=== PATIENT | female | born 1975 | race Caucasian/White ===

== ENCOUNTER 2018-10-07 20:22 | Emergency (ER) | payer OTHER, BC ==
--- NOTE | 2018-10-07 20:37 | EDM.PDOC ---
ED HPI GENERAL MEDICAL PROBLEM - General Chief Complaint: Upper Extremity Injury/Pain Stated Complaint: LEFT SHOULDER PAIN Time Seen by Provider: 10/07/18 20:25 Source of Information: Reports: Patient History Limitations: Reports: No Limitations - History of Present Illness INITIAL COMMENTS - FREE TEXT/NARRATIVE: HISTORY AND PHYSICAL: History of present illness: Patient is a 43-year-old female who presents to the emergency room today with complaints of left shoulder pain. She states that an iron pipe had fallen onto her left shoulder resulting in pain and difficulty with range of motion. She denies hitting her head or having any loss of consciousness. Denies any numbness or tingling to the affected extremity. No previous surgery, trauma or injuries of the affected extremity. Review of systems: As per history of present illness and below otherwise all systems reviewed and negative. Past medical history: As per history of present illness and as reviewed below otherwise noncontributory. Surgical history: As per history of present illness and as reviewed below otherwise noncontributory. Social history: See social history for further information Family history: As per history of present illness and as reviewed below otherwise noncontributory. Physical exam: General: Well-developed and well-nourished 43-year-old female. Alert and oriented. Nontoxic appearing and in no acute distress. HEENT: Atraumatic, normocephalic, pupils equal and reactive bilaterally, negative for conjunctival pallor or scleral icterus, mucous membranes moist, TMs normal bilaterally, throat clear, neck supple, nontender, trachea midline. No drooling or trismus noted. No meningeal signs. No hot potato voice noted. Lungs: Clear to auscultation, breath sounds equal bilaterally, chest nontender. Heart: S1S2, regular rate and rhythm without overt murmur Abdomen: Soft, nondistended, nontender. Negative for masses or hepatosplenomegaly. Negative for costovertebral tenderness. Pelvis: Stable nontender. Genitourinary: Deferred. Rectal: Deferred. Skin: Early bruising noted to the left mid clavicle, skin is intact, warm, dry. No tenting or soft tissue swelling noted. No lesions or rashes noted. Extremities: Pain with palpation of the left clavicle extending into the shoulder cap. Arm is guarded in towards body as position of comfort. Strong radial pulse. No pain to the humerus, elbow, forearm, wrist or hand. Neurovascular unremarkable. C-spine/Back: No pinpoint vertebral tenderness upon palpation. No crepitus, step -offs or obvious deformities. She was ambulatory into the emergency room without difficulty or deficits. Denies any numbness or tingling or satellite paresthesia. Denies any urinary or fecal incontinence. Neuro: Awake, alert, oriented. Cranial nerves II through XII unremarkable. Cerebellum unremarkable. Motor and sensory unremarkable throughout. Exam nonfocal. Notes: X-ray shows a nondisplaced midclavicular fracture. Otherwise shoulder x-ray is unremarkable. Patient was made aware of this and placed in a sling. Encouraged her to call Tuesday to set up an appointment with the orthopedic provider. Medication education was reviewed and discussed. Supportive care measures were reviewed and discussed. Voices understanding and is agreeable to plan of care. Denies any further questions or concerns at this time. Diagnostics: X-ray left clavicle and shoulder Therapeutics: Sling Prescription: Easton (#20) Impression: Nondisplaced clavicular fracture, left Plan: 1. Rest, ice, elevate the affected extremity. Please wear the sling as directed. Avoid any strenuous activities which could cause reinjury. 2. Tylenol and/or Ibuprofen as needed for pain management. Easton as needed for moderate to severe pain. This medication may cause drowsiness a do not take it will driving or needing to be functioning outside of the house. 3. Follow up with the Orthopedic provider as we discussed. Return to the ED as needed and as discussed. Definitive disposition and diagnosis as appropriate pending reevaluation and review of above. left shoulder/clavicle Pain Score (Numeric/FACES): 6 - Related Data Allergies Allergy/AdvReac Type Severity Reaction Status Date / Time No Known Allergies Allergy Verified 10/07/18 20:34 Home Meds: Home Meds . [No Known Home Meds] 10/07/18 [History] Review of Systems - Review of Systems Review Of Systems: ROS reveals no pertinent complaints other than HPI. ED EXAM, GENERAL - Physical Exam Exam: See Below (See dictation) Course - Vital Signs Last Recorded V/S: Last Vital Signs Temp 98 F 10/07/18 20:34 Pulse 90 10/07/18 20:34 Resp 18 10/07/18 20:34 BP 122/71 10/07/18 20:34 Pulse Ox 96 10/07/18 20:34 - Orders/Labs/Meds Orders: Active Orders 24 hr Category Date Time Status Clavicle Lt [CR] Stat Exams 10/07/18 20:41 Taken Shoulder Comp Lt [CR] Stat Exams 10/07/18 20:41 Taken DME for Discharge [COMM] Stat Oth 10/07/18 21:31 Ordered Departure - Departure Time of Disposition: 21:30 Disposition: Home, Self-Care 01 Clinical Impression: Clavicle fracture, shaft Qualifiers: Encounter type: initial encounter Fracture type: closed Fracture alignment: nondisplaced Laterality: left Qualified Code(s): S42.025A - Nondisplaced fracture of shaft of left clavicle, initial encounter for closed fracture - Discharge Information Instructions: Clavicle Fracture, [id number] Forms: ED Department Discharge Additional Instructions: The following information is given to patients seen in the emergency department who are being discharged to home. This information is to outline your options for follow-up care. We provide all patients seen in our emergency department with a follow-up referral. The need for follow-up, as well as the timing and circumstances, are variable depending upon the specifics of your emergency department visit. If you don't have a primary care physician on staff, we will provide you with a referral. We always advise you to contact your personal physician following an emergency department visit to inform them of the circumstance of the visit and for follow-up with them and/or the need for any referrals to a consulting specialist. The emergency department will also refer you to a specialist when appropriate. This referral assures that you have the opportunity for follow-up care with a specialist. All of these measure are taken in an effort to provide you with optimal care, which includes your follow-up. Under all circumstances we always encourage you to contact your private physician who remains a resource for coordinating your care. When calling for follow-up care, please make the office aware that this follow-up is from your recent emergency room visit. If for any reason you are refused follow-up, please contact the [facility] Emergency Department at and asked to speak to the emergency department charge nurse. [facility] [address] [place] [id number] [address] [facility] Professional Building [address] [facility], [address] [place] [address] 1. Rest and ice the affected extremity. Please wear the sling as directed. Avoid any strenuous activities which could cause reinjury. 2. Tylenol and/or Ibuprofen as needed for pain management. Easton as needed for moderate to severe pain. This medication may cause drowsiness a do not take it will driving or needing to be functioning outside of the house. 3. Follow up with the Orthopedic provider as we discussed. Return to the ED as needed and as discussed. - My Orders Last 24 Hours: My Active Orders 10/07/18 20:41 Clavicle Lt [CR] Stat Shoulder Comp Lt [CR] Stat 10/07/18 21:31 DME for Discharge [COMM] Stat - Assessment/Plan Last 24 Hours: My Active Orders 10/07/18 20:41 Clavicle Lt [CR] Stat Shoulder Comp Lt [CR] Stat 10/07/18 21:31 DME for Discharge [COMM] Stat
--- NOTE | 2018-10-07 21:45 | CR ---
INDICATION: Pain after work injury. COMPARISON: None available. FINDINGS: The left clavicle is examined with AP and cranially angulated views. There is an acute, minimally displaced, oblique fracture of the midshaft of the clavicle. The acromioclavicular joint is normal in appearance with no sign of separation. The visualized portions of the left shoulder and upper chest are normal in appearance. IMPRESSION: Acute, minimally displaced, oblique fracture of the midshaft of the clavicle. Dictated by Poncho Britt MD @ Oct 07 2018 9:43PM Signed by Dr. Poncho Britt @ Oct 07 2018 9:45PM
--- NOTE | 2018-10-07 21:47 | CR ---
INDICATION: Work related injury. COMPARISON: None available. FINDINGS: The left shoulder was examined with AP and outlet views for a total of two views. There is an acute, minimally displaced, oblique fracture of the midshaft of the clavicle. The osseous structures are in anatomic alignment without fracture or dislocation. There is anatomic alignment of the humeral head and glenoid. The visualized chest is clear. IMPRESSION: Acute, minimally displaced, oblique fracture of the midshaft of the clavicle. No sign of any additional fracture elsewhere in the shoulder. Dictated by Poncho Britt MD @ Oct 07 2018 9:45PM Signed by Dr. Poncho Britt @ Oct 07 2018 9:46PM
== END 2018-10-07 22:00 | disposition home or self-care (01) ==
LOC: MW.ED 20:22
DX: S42.025A Nondisplaced fracture of shaft of left clavicle, initial encounter for closed fracture (principal); W20.8XXA Other cause of strike by thrown, projected or falling object, initial encounter
CPT/HCPCS: 73000-26-LT; 73000-LT; 73030-26-LT; 73030-LT; 99282; 99283-25

== ENCOUNTER 2019-03-30 15:12 | Emergency (ER) | payer BC, OTHER ==
--- NOTE | 2019-03-30 15:20 | EDM.PDOC ---
ED HPI GENERAL MEDICAL PROBLEM - General Chief Complaint: Neurological Problem Stated Complaint: STROKE CODE Time Seen by Provider: 03/30/19 15:19 Source of Information: Reports: Patient History Limitations: Reports: No Limitations - History of Present Illness INITIAL COMMENTS - FREE TEXT/NARRATIVE: History of present illness: []Patient was eating prior to arrival with her sister and had a sudden onset of mild blurry vision. Her sister noted her right pupil was dilated. Patient has no other complaints at this time. She denies any trauma, headache or numbness or tingling anywhere. Review of systems: As per history of present illness and below otherwise all systems reviewed and negative. Past medical history: As per history of present illness and as reviewed below otherwise noncontributory. Surgical history: As per history of present illness and as reviewed below otherwise noncontributory. Social history: No reported history of drug or alcohol abuse. Family history: As per history of present illness and as reviewed below otherwise noncontributory. Physical exam: General: Well developed, well nourished in NAD HEENT: Atraumatic, normocephalic, pupils reactive, negative for conjunctival pallor or scleral icterus, mucous membranes moist, throat clear, neck supple, nontender, trachea midline. Lungs: Clear to auscultation, breath sounds equal bilaterally, chest nontender. Heart: S1S2, regular, negative for clicks, rubs, or JVD. Abdomen: NABS, Soft, nondistended, nontender. Negative for masses or hepatosplenomegaly. Negative for costovertebral tenderness. Pelvis: Stable nontender. Genitourinary: Deferred. Rectal: Deferred. Extremities: Atraumatic, negative for cords or calf pain. Neurovascular unremarkable. Neuro: Awake, alert, oriented. Cranial nerves II through XII unremarkable. Cerebellum unremarkable. Motor and sensory unremarkable throughout. Exam nonfocal. Skin:warm and dry Diagnostics: Head without contrast negative, CT Head and neck negative for aneurysm Therapeutics: None ED Course: 16:00-consulted Dr. Lanza, he requested CT angiogram of head and neck to rule out an aneurysm compressing the optic nerve. Impression: Irregular pupillary response Prescriptions: None Plan: Follow-up with ophthalmology in 2 days Definitive disposition and diagnosis as appropriate pending reevaluation and review of above. - Related Data Allergies Allergy/AdvReac Type Severity Reaction Status Date / Time No Known Allergies Allergy Verified 03/30/19 15:30 Home Meds: Home Meds . [No Known Home Meds] 10/07/18 [History] Past Medical History - Past Health History Medical/Surgical History: Denies Medical/Surgical History - Infectious Disease History Infectious Disease History: Reports: Chicken Pox Social & Family History - Family History Family Medical History: Noncontributory - Caffeine Use Caffeine Use: Reports: Coffee, Energy Drinks, Soda, Tea ED ROS GENERAL - Review of Systems Review Of Systems: See Below ED EXAM GENERAL W FULL EYE - Physical Exam Exam: See Below (The history of present illness) Course - Vital Signs Last Recorded V/S: Last Vital Signs Temp 98.2 F 03/30/19 15:27 Pulse 95 03/30/19 16:10 Resp 16 03/30/19 16:10 BP 116/74 03/30/19 16:10 Pulse Ox 95 03/30/19 16:10 - Orders/Labs/Meds Orders: Active Orders 24 hr Category Date Time Status Sodium Chloride 0.9% [Saline Flush] Med 03/30/19 16:02 Active 10 ml FLUSH ASDIRECTED PRN Sodium Chloride 0.9% [Saline Flush] Med 03/30/19 16:02 Active 2.5 ml FLUSH ASDIRECTED PRN Saline Lock Insert [OM.PC] Stat Oth 03/30/19 16:01 Ordered Medication Orders Sodium Chloride (Saline Flush) 10 ml FLUSH ASDIRECTED PRN PRN Reason: Keep Vein Open Sodium Chloride (Saline Flush) 2.5 ml FLUSH ASDIRECTED PRN PRN Reason: Keep Vein Open Labs: Laboratory Tests 03/30/19 03/30/19 Range/Units 16:15 16:15 WBC 10.81 (4.0-11.0) K/uL RBC 4.65 (4.30-5.90) M/uL Hgb 14.3 (12.0-16.0) g/dL Hct 43.4 (36.0-46.0) % MCV 93.3 (80.0-98.0) fL MCH 30.8 (27.0-32.0) pg MCHC 32.9 (31.0-37.0) g/dL RDW Std Deviation 45.2 (28.0-62.0) fl RDW Coeff of Josette 13 (11.0-15.0) % Plt Count 293 (150-400) K/uL MPV 11.20 (7.40-12.00) fL Neut % (Auto) 66.9 (48.0-80.0) % Lymph % (Auto) 25.2 (16.0-40.0) % Rolette % (Auto) 6.9 (0.0-15.0) % Eos % (Auto) 0.6 (0.0-7.0) % Baso % (Auto) 0.4 (0.0-1.5) % Neut # (Auto) 7.2 H (1.4-5.7) K/uL Lymph # (Auto) 2.7 H (0.6-2.4) K/uL Rolette # (Auto) 0.8 (0.0-0.8) K/uL Eos # (Auto) 0.1 (0.0-0.7) K/uL Baso # (Auto) 0.0 (0.0-0.1) K/uL Nucleated RBC % 0.0 /100WBC Nucleated RBCs # 0 K/uL Sodium 140 (136-145) mmol/L Potassium 4.1 (3.5-5.1) mmol/L Chloride 104 (98-107) mmol/L Carbon Dioxide 29.5 (21.0-32.0) mmol/L BUN 12 (7.0-18.0) mg/dL Creatinine 1.0 (0.6-1.0) mg/dL Est Cr Clr Drug Dosing 60.62 mL/min Estimated GFR (MDRD) > 60.0 ml/min Glucose 97 (74-106) mg/dL Calcium 9.6 (8.5-10.1) mg/dL Total Bilirubin 0.3 (0.2-1.0) mg/dL AST 14 L (15-37) IU/L ALT 14 (14-63) IU/L Alkaline Phosphatase 78 (46-116) U/L Total Protein 7.3 (6.4-8.2) g/dL Albumin 3.5 (3.4-5.0) g/dL Globulin 3.8 (2.6-4.0) g/dL Albumin/Globulin Ratio 0.9 (0.9-1.6) Meds: Medications Generic Name Dose Route Start Last Admin Trade Name Freq PRN Reason Stop Dose Admin Sodium Chloride 10 ml 03/30/19 16:02 Saline Flush FLUSH ASDIRECTED PRN Keep Vein Open Sodium Chloride 2.5 ml 03/30/19 16:02 Saline Flush FLUSH ASDIRECTED PRN Keep Vein Open Discontinued Medications Generic Name Dose Route Start Last Admin Trade Name Freq PRN Reason Stop Dose Admin Iopamidol 100 ml 03/30/19 17:42 03/30/19 17:42 Isovue Multipack-370 (76%) IVPUSH 03/30/19 17:43 100 ml ONETIME STA Administration Departure - Departure Time of Disposition: 18:11 Disposition: Home, Self-Care 01 Condition: Good Clinical Impression: Dilated pupil - Discharge Information *PRESCRIPTION DRUG MONITORING PROGRAM REVIEWED*: No *COPY OF PRESCRIPTION DRUG MONITORING REPORT IN PATIENT DENIS: No Referrals: PCP,Daveobsharif [Primary Care Provider] - Roosevelt Lanza [Ordering Only Provider] - Forms: ED Department Discharge Additional Instructions: The following information is given to patients seen in the emergency department who are being discharged to home. This information is to outline your options for follow-up care. We provide all patients seen in our emergency department with a follow-up referral. The need for follow-up, as well as the timing and circumstances, are variable depending upon the specifics of your emergency department visit. If you don't have a primary care physician on staff, we will provide you with a referral. We always advise you to contact your personal physician following an emergency department visit to inform them of the circumstance of the visit and for follow-up with them and/or the need for any referrals to a consulting specialist. The emergency department will also refer you to a specialist when appropriate. This referral assures that you have the opportunity for follow-up care with a specialist. All of these measure are taken in an effort to provide you with optimal care, which includes your follow-up. Under all circumstances we always encourage you to contact your private physician who remains a resource for coordinating your care. When calling for follow-up care, please make the office aware that this follow-up is from your recent emergency room visit. If for any reason you are refused follow-up, please contact the [facility] Emergency Department at and asked to speak to the emergency department charge nurse. Follow-up with ophthalmology in 2 days call Tuesday morning for appointment time. [address] [address] - My Orders Last 24 Hours: My Active Orders 03/30/19 16:01 Saline Lock Insert [OM.PC] Stat 03/30/19 16:02 Sodium Chloride 0.9% [Saline Flush] 10 ml FLUSH ASDIRECTED PRN Sodium Chloride 0.9% [Saline Flush] 2.5 ml FLUSH ASDIRECTED PRN - Assessment/Plan Last 24 Hours: My Active Orders 03/30/19 16:01 Saline Lock Insert [OM.PC] Stat 03/30/19 16:02 Sodium Chloride 0.9% [Saline Flush] 10 ml FLUSH ASDIRECTED PRN Sodium Chloride 0.9% [Saline Flush] 2.5 ml FLUSH ASDIRECTED PRN
--- NOTE | 2019-03-30 15:32 | CT ---
INDICATION: Right high dilated, blurry vision TECHNIQUE: CT head without contrast. COMPARISON: None FINDINGS: CSF spaces: Within normal limits for age. Brain parenchyma: The meza-white differentiation is normal. No sign of mass, hemorrhage, or midline shift. Skull base and calvarium: The visualized paranasal sinuses and mastoid air cells demonstrate no acute or significant findings. The visualized orbits are grossly unremarkable. No skull fractures. IMPRESSION: Unremarkable noncontrast head CT. Please note that all CT scans at this facility use dose modulation, iterative reconstruction, and/or weight-based dosing when appropriate to reduce radiation dose to as low as reasonably achievable. Dictated by Dunia Brooks MD @ Mar 30 2019 3:27PM Signed by Dr. Dunia Brooks @ Mar 30 2019 3:29PM
[2019-03-30] MEDS ORDERED: Sodium Chloride 0.9% 10 ML Syringe FLUSH PRN (16:02)
[2019-03-30] MEDS ORDERED: Sodium Chloride 0.9% 2.5 ML Syringe FLUSH PRN (16:02)
[2019-03-30 16:54] LABS: BLOOD UREA NITROGEN,BUN 12 mg/dL (7.0-18.0); CARBON DIOXIDE,CO2 29.5 mmol/L (21.0-32.0); CHLORIDE,CL 104 mmol/L (98-107); GLUCOSE RANDOM 97 mg/dL (74-106); POTASSIUM,K 4.1 mmol/L (3.5-5.1); SODIUM,NA 140 mmol/L (136-145)
[2019-03-30] MEDS ORDERED: Iopamidol 755 MG/ML 500 ML Multipack Bottle IVPUSH STA (17:42)
--- NOTE | 2019-03-30 18:04 | CT ---
INDICATION: Unilateral dilated pupil, right-side. TECHNIQUE: High resolution axial CT images acquired through the head and neck following rapid intravenous administration of iodinated contrast. Multiplanar MIPS of cranial and cervical vasculature performed. FINDINGS: CTA head: There is normal filling of the intracranial vasculature; i.e. there is no large vessel occlusion or intracranial stenosis. There is no cerebral aneurysm or evidence for vascular malformation. CTA neck: Both carotid and vertebral arteries have a normal course and caliber. The soft tissues of the neck are within normal limits. The cervical spine is in normal alignment. Degenerative changes are noted in the cervical spine. Scarring is noted in the lung apices. IMPRESSION: No acute intracranial abnormality. No carotid or vertebral artery stenosis or dissection. Tarik Miner MD Neurointerventional Radiologist [facility] [employer] Please note that all CT scans at this facility use dose modulation, iterative reconstruction, and/or weight-based dosing when appropriate to reduce radiation dose to as low as reasonably achievable. Dictated by Tarik Miner MD @ Mar 31 2019 2:48PM Signed by Dr. Tarik Miner @ Mar 31 2019 2:52PM
--- NOTE | 2019-03-30 18:06 | CT ---
INDICATION: Unilateral dilated pupil, right-side. TECHNIQUE: High resolution axial CT images acquired through the head and neck following rapid intravenous administration of iodinated contrast. Multiplanar MIPS of cranial and cervical vasculature performed. FINDINGS: CTA head: There is normal filling of the intracranial vasculature; i.e. there is no large vessel occlusion or intracranial stenosis. There is no cerebral aneurysm or evidence for vascular malformation. CTA neck: Both carotid and vertebral arteries have a normal course and caliber. The soft tissues of the neck are within normal limits. The cervical spine is in normal alignment. Degenerative changes are noted in the cervical spine. Scarring is noted in the lung apices. IMPRESSION: No acute intracranial abnormality. No carotid or vertebral artery stenosis or dissection. Tarik Miner MD Neurointerventional Radiologist [facility] Please note that all CT scans at this facility use dose modulation, iterative reconstruction, and/or weight-based dosing when appropriate to reduce radiation dose to as low as reasonably achievable. Dictated by Tarik Miner MD @ Mar 31 2019 2:52PM Signed by Dr. Tarik Miner @ Mar 31 2019 2:53PM
== END 2019-03-30 19:03 | disposition home or self-care (01) ==
LOC: MW.ED 15:12
DX: H57.04 Mydriasis (principal)
CPT/HCPCS: 36415; 70450; 70496; 70498; 80053; 85025; 99284; Q9967

== ENCOUNTER 2024-03-19 12:53 | Day surgery (SDC) | payer OTHER ==
[2024-03-19] MEDS: Lactated Ringers 1,000 ML IV SCH (14:02)
[2024-03-19] MEDS ORDERED: Lidocaine 2% 5 ML SDV ONE (14:48)
[2024-03-19] MEDS ORDERED: propofoL 50 ML ONE (14:48)
[2024-03-19] MEDS ORDERED: Lactated Ringers 1,000 ML IV SCH (15:45)
== END 2024-03-19 16:08 | disposition home or self-care (01) ==
LOC: MW.SDS 12:53
PROVIDERS: ATTEND Surgery
DX: D12.2 Benign neoplasm of ascending colon (principal); D12.3 Benign neoplasm of transverse colon; D12.5 Benign neoplasm of sigmoid colon; E78.00 Pure hypercholesterolemia, unspecified; E66.9 Obesity, unspecified; Z68.31 Body mass index [BMI] 31.0-31.9, adult; F32.9 Major depressive disorder, single episode, unspecified; F17.210 Nicotine dependence, cigarettes, uncomplicated
CPT/HCPCS: 45380; 81025; 88305; J2704; J7120; 00811; J3490